=== PATIENT | female | born 1975 | race Two or more races ===

== ENCOUNTER 2022-04-24 19:42 | Emergency (ER) | payer OTHER ==
[~2022-04-24] VITALS: Ht 157.5 cm; Wt 47.6 kg
[2022-04-24] MEDS ORDERED: LAMICTAL200 M1 (20:19)
[2022-04-24] MEDS ORDERED: KEPPRA500 MG (20:19)
[2022-04-25] MEDS ORDERED: LEVSIN/SL0.125 MG SL (00:39)
[2022-04-25] MEDS ORDERED: PEPCID AC20 MG PO (00:39)
[2022-04-25] MEDS ORDERED: CARAFATE1 GM PO (00:39)
[2022-04-25] MEDS ORDERED: ACETAMINOPHEN650 M2 PO (07:55)
[2022-04-25] MEDS ORDERED: INTESTINEX680 M1 PO (07:56)
== END 2022-04-25 08:33 | disposition home or self-care (01) ==
LOC: ER 19:42
DX: K29.70 Gastritis, unspecified, without bleeding (principal); R10.13 Epigastric pain; K57.92 Diverticulitis of intestine, part unspecified, without perforation or abscess without bleeding; Z88.6 Allergy status to analgesic agent; Z91.013 Allergy to seafood